=== PATIENT | female | born 1975 | race Caucasian/White ===

== ENCOUNTER 2025-07-22 11:29 | Emergency (ER) | payer BC, SELFPAY ==
[2025-07-22 12:46] VITALS: BMI 39.4
--- NOTE | 2025-07-22 12:52 | EDRN ---
Pt arrives for multiple lesions all over her body-jose miguel arms, jose miguel legs, and L hip, now bilateral hands. Lesions started 1.5 weeks ago on R medial knee and L anterior thigh. Areas are red/inflamed and pruritic per pt. Pt started on Renee w/ 1st dose
on Tue a week ago from this past Tue. and areas seemed to spread more quickly. Pt saw stockbroker whom she sees for her Bashet's autoimmune disease. Head Of Marketing [employer] said it is definitely not her Bashet's and referred her to a construction secretary who
tested pt for MRSA and placed pt on doxycycline 100 mg BID.
--- NOTE | 2025-07-22 14:15 | EDRN ---
Pt still awaiting to be seen by ED HCP. Pt OOB to BR at this time.
--- NOTE | 2025-07-22 14:45 | EDRN ---
Debo ELISE in room w/pt.
--- NOTE | 2025-07-22 15:03 | ED.GENMED ---
History of Present Illness
General
Chief Complaint: Skin Problem
Source: patient
Exam Limitations: none
Time Seen by Provider: 07/22/25 14:07
Nursing documentation reviewed up to this point in time: agreed with
History of Present Illness
History of Present Illness:
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
extremity. Claims that this is mainly itchy with some mild discomfort. No systemic symptoms no fevers no nausea no vomiting no mucous membrane involvement no trouble swallowing or breathing. Currently is not taking any medications for her
autoimmune conditions.
Review of Systems
Review of Systems
Allergies reviewed?: Yes
All Other Systems: ROS reviewed and negative except as documented in HPI and ROS
Phy Exam
Physical Exam
Physical Exam:
GENERAL: Alert , in no apparent distress
EYE: pupils equal and reactive
NECK: Supple, no significant adenopathy.
ENT: o/p clr, mmm.
CARDIAC: Regular rate and rhythm .
LUNGS: Clear breath sounds bilaterally, no acute respiratory distress, no wheezes/rales/rhonchi
ABDOMEN: Soft, without focal tenderness, no r/g, no cvat
NEUROLOGICAL: Alert and oriented, no focal neuro deficits
SKIN: Scattered vesicular grouped vesicles on erythematous base. Large patches to the lower extremities bilaterally as well as the left forearm as well as the left lower. No significant tenderness no purulence well-demarcated borders. Warm and
dry, skin intact.
MUSCULOSKELETAL: No edema, well perfused.
PSYCH: Normal and appropriate interaction.
Course
Vital Signs
Initial and Last Documented VS:
Initial Vital Signs
Temp Pulse Resp Pulse Ox
98.7 F 101 18 97
07/22/25 11:43 07/22/25 11:43 07/22/25 11:43 07/22/25 11:43
Last Documented Vital Signs
Temp Pulse Resp BP Pulse Ox
98.7 F 79 16 123/79 98
07/22/25 11:43 07/22/25 15:16 07/22/25 15:16 07/22/25 15:16 07/22/25 15:16
MDM/Problems Addressed
MDM/Problems Addressed:
50-year-old female presenting with concerns of a rash that is worsening over the past 2 weeks or so. Recently saw dermatology started on doxycycline but has not had any improvement. No systemic symptoms no mucous membrane involvement does not seem
to be consistent with any life-threatening rash could be contact dermatitis versus autoimmune rash. Started on steroids advised for close dermatology follow-up. Return precautions given.
*Pulse Oximetry
SaO2: 97
Patient hypoxic: no (98)
*Critical Care Note
Total Time (30-74mins, 75-104mins- exclusive of procedures): Not Applicable
ED Attending Note
-
Portions of this chart may have been created with voice recognition software.� Occasional wrong word or��sound alike� substitutions may have occurred due to the inherent limitations of voice recognition software.
Discharge Plan
Departure
Patient Disposition: Home (Routine Discharge)
Date of Disposition: 07/22/25
Time of Disposition: 15:03
Patient with high blood pressure during this ER visit?: No
Condition: Good
Covid-19: Not Applicable
Discharge Problem:
Vesicular dermatitis
Instructions: Skin Rash (DC)
Prescriptions:
New
prednisone 10 mg Tablet
See Rx Instructions .ROUTE .COMPLEX Qty: 45 0RF
Rx Instructions:
Take By Mouth:
50 mg daily x3 days, 40 mg daily x3 days,
30 mg daily x3 days, 20 mg daily x3 days,
10 mg daily x3 days
Referrals:
Lambert Dia CRNP [Family Provider, Family Practice]
Activity Restrictions/Additional Instructions:
You came to the ER with a rash. Please take the prescribed steroid to help with symptoms. Please see your senior it project manager as soon as possible and return if symptoms progress or worsen.
Interventions
Interventions:
*Risk Screen - Suicide Last Done: 07/22/25 12:46
*General Assessment Last Done: 07/22/25 12:46
*Neglect/Abuse Screening Last Done: 07/22/25 12:46
*ED- Fall Risk Assessment Last Done: 07/22/25 12:46
*ED COVID-19 Vaccine History Last Done: 07/22/25 12:46
*Nursing Disposition Last Done: 07/22/25 15:16
ED-Skin Assessment Last Done: 07/22/25 12:46
Discharge Date and Time
Discharge Date/Time: 07/22/25 15:17
Print Language: [id number]
[2025-07-22 15:16] VITALS: BP 123/79
== END 2025-07-22 15:17 | disposition home or self-care (01) ==
LOC: EMR 11:29
PROVIDERS: EMERGENCY PHYSICIAN Emergency Medicine; FAMILY PHYSICIAN Nurse Practitioner Family
DX: L30.9 Dermatitis, unspecified (principal); M45.9 Ankylosing spondylitis of unspecified sites in spine
CPT/HCPCS: 99282